=== PATIENT | female | born 2000 | race Caucasian/White ===

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

== ENCOUNTER → 2020-06-10 16:52 | Outpatient (CLI) | payer OTHER, SELFPAY ==
[2019-11-10 09:41] VITALS: BMI 23.2
--- NOTE | 2020-06-10 17:08 | RAD_ITS ---
STUDY: X-RAY - LEFT FOOT CLINICAL: Female, 20 years old. FOOT PAIN TECHNIQUE: 2 view(s) of the foot. COMPARISON: None. FINDINGS: Normal talus, calcaneus, and tarsal bones. Normal visualized subtalar, talonavicular, calcaneocuboid, tarsal and tarsometatarsal articulations. Normal metatarsi. Normal metatarsophalangeal joint of the great toe. Normal tibial and fibular sesamoid bones. Normal interphalangeal joint of the great toe. Normal phalanges of the great toe. Normal second through fifth metatarsophalangeal joints. Normal interphalangeal joints and phalanges of the lesser toes. The soft tissue structures are unremarkable. There is no demonstrated fracture. RAD/Foot 2 Views IMPRESSION: Negative limited 2 view x-ray examination of the foot. Electronically Signed: Alex Ervin MD at 23:55 EDT , Service support ,
--- NOTE | 2020-06-10 17:08 | RAD_ITS ---
STUDY: X-RAY - RIGHT WRIST REASON FOR EXAM: Female, 20 years old. WRIST PAIN TECHNIQUE: 2 view(s) of the wrist were obtained. COMPARISON: None. FINDINGS: Normal visualized distal radius and ulna. Normal radiocarpal articulation. Normal distal radioulnar articulation. Normal carpal bones. Normal carpal articulations. Normal carpometacarpal articulation of the thumb. Normal second through fifth carpometacarpal articulations. Normal visualized metacarpal bones. The soft tissue structures are unremarkable. There is no demonstrated acute fracture. RAD/Wrist 2 Views IMPRESSION: Negative limited 2 view x-ray examination of the wrist. Electronically Signed: Alex Ervin MD at 23:56 EDT , Service support ,
--- NOTE | 2020-06-10 17:09 | RAD_ITS ---
INDICATION: WRIST PAIN EXAMINATION/TECHNIQUE: X-RAY - LEFT XR Wrist 2 Views COMPARISON: None. FINDINGS: No acute fracture or malalignment. No blastic or lytic lesions. No degenerative changes are seen. The soft tissues are unremarkable. RAD/Wrist 2 Views IMPRESSION: No acute radiographic abnormalities. Electronically Signed: Donnie Abrams MD at 23:46 EDT Tel , Service support ,
--- NOTE | 2020-06-10 17:10 | RAD_ITS ---
STUDY: X-RAY - LEFT HAND REASON FOR EXAM: Bilateral hand/wrist pain. TECHNIQUE: 2 view(s) of the hand. COMPARISON: Radiographs of the left wrist obtained the same day. FINDINGS: Normal radiocarpal articulation. Normal distal radioulnar joint. Normal visualized carpal bones. Normal carpal articulations Normal carpometacarpal articulation of the thumb. Normal second through fifth carpometacarpal joints. Normal metacarpi. Normal metacarpophalangeal joint of the thumb. Normal interphalangeal joint of the thumb. Normal proximal and distal phalanges of the thumb. Normal metacarpophalangeal joints of the second through fifth fingers. Normal proximal and distal interphalangeal joints of the second through fifth fingers. Normal phalanges of the second through fifth fingers. The soft tissue structures are unremarkable. RAD/Hand 2 Views IMPRESSION: Normal x-ray examination of the left hand. Electronically Signed: Carter Cabrera MD at 12:55 EDT Tel , Service support ,
--- NOTE | 2020-06-10 17:10 | RAD_ITS ---
STUDY: X-RAY - RIGHT HAND REASON FOR EXAM: Bilateral hand/wrist pain. TECHNIQUE: 2 view(s) of the hand. COMPARISON: Radiographs of the right wrist obtained the same day. FINDINGS: Normal radiocarpal articulation. Normal distal radioulnar joint. Normal visualized carpal bones. Normal carpal articulations Normal carpometacarpal articulation of the thumb. Normal second through fifth carpometacarpal joints. Normal metacarpi. Normal metacarpophalangeal joint of the thumb. Normal interphalangeal joint of the thumb. Normal proximal and distal phalanges of the thumb. Normal metacarpophalangeal joints of the second through fifth fingers. Normal proximal and distal interphalangeal joints of the second through fifth fingers. Normal phalanges of the second through fifth fingers. The soft tissue structures are unremarkable. RAD/Hand 2 Views IMPRESSION: Normal x-ray examination of the right hand. Electronically Signed: Carter Cabrera MD at 12:55 EDT Tel , Service support ,
--- NOTE | 2020-06-10 17:11 | RAD_ITS ---
STUDY: X-RAY CHEST REASON FOR EXAM: Female, 20 years old. TOS RO CERVICAL RIB TECHNIQUE: Frontal and lateral views of the chest. COMPARISON: None. FINDINGS: The lungs are clear and expanded. There is no demonstrated pleural abnormality. Normal size heart. Normal mediastinum and guerita. Normal visualized pulmonary arteries. Normal visualized aortic arch and descending thoracic aorta. Normal visualized thoracic spine. Normal visualized ribs, clavicles, and shoulders. No cervical ribs are seen. There is no demonstrated abnormality of the visualized soft tissue structures of the upper abdomen. RAD/Chest PA and Lateral IMPRESSION: Normal x-ray examination of the chest. Electronically Signed: Alex Ervin MD at 23:54 EDT , Service support ,
--- NOTE | 2020-06-10 17:11 | RAD_ITS ---
INDICATION: NECK PAIN EXAMINATION/TECHNIQUE: X-RAY - XR Spine Cervical 4 or 5 Views COMPARISON: None. FINDINGS: VERTEBRAE: Preserved vertebral body height. No fracture. No spondylolisthesis. Straightening of the normal cervical lordosis. No significant facet arthropathy. DISCS: Disc spaces are maintained. NECK SOFT TISSUES: No prevertebral soft tissue widening. LUNG APICES: Clear. RAD/Cerv Spine 4 or 5 Views IMPRESSION: No acute abnormalities. Electronically Signed: Donnie Abrams MD at 21:41 EDT Tel , Service support ,
--- NOTE | 2020-06-10 17:15 | RAD_ITS ---
STUDY: X-RAY - RIGHT FOOT CLINICAL: Female, 20 years old. FOOT PAIN TECHNIQUE: 2 view(s) of the foot. COMPARISON: None. FINDINGS: Normal talus, calcaneus, and tarsal bones. Normal visualized subtalar, talonavicular, calcaneocuboid, tarsal and tarsometatarsal articulations. Normal metatarsi. Normal metatarsophalangeal joint of the great toe. Normal tibial and fibular sesamoid bones. Normal interphalangeal joint of the great toe. Normal phalanges of the great toe. Normal second through fifth metatarsophalangeal joints. Normal interphalangeal joints and phalanges of the lesser toes. The soft tissue structures are unremarkable. There is no demonstrated fracture. RAD/Foot 2 Views IMPRESSION: Negative limited 2 view x-ray examination of the foot. Electronically Signed: Alex Ervin MD at 23:55 EDT , Service support ,
[2020-06-10 18:09] LABS: Mucous, Urine 0 SEEN /hpf (<or=2+); Red Blood Cells-Urine 0 SEEN /hpf (0-5); White Blood Cells 0 SEEN /hpf (0-5)
[2020-06-10 18:44] LABS: Color, Urine Yellow (Yellow); Glucose, Dipstick Normal (Normal); Ketone-Dipstick Negative (Negative); Leukocyte Esterase-Dipstick Negative /ul (Negative); Nitrite-Dipstick Negative (Negative); Occult Blood-Urine Negative /ul (Negative); Protein-Dipstick 15 mg/dl (Negative); Urine Bilirubin Dipstick Negative (Negative); Urine Clarity Clear (Clear); Urine Urobilinogen Normal (Normal)
[2020-06-10 18:50] LABS: Bacteria RARE /hpf (None Seen); Squamous Epithelial Cells - UA 0-5 SEEN /hpf (5-10)
[2020-06-10 19:39] LABS: Vitamin B12 779 pg/mL (211-911); Vitamin D,25 Hydroxy 30.3 ng/mL
[2020-06-10 19:44] LABS: CPK Total, Creatine Kinase 100 U/L (26-192); Magnesium 2.1 mg/dL (1.6-2.6); Thyroid Stim Hormone (TSH) 3.74 uIU/mL (0.358-3.74); Uric Acid 3.3 mg/dL (2.6-6.0)
[2020-06-12 16:51] LABS: Vitamin D 1,25-Dihydroxy 61.2 pg/mL (19.9-79.3)
== END ==
PROVIDERS: PCP Internal Medicine; Referring Provider Internal Medicine Rheumatology; Visit Provider Internal Medicine Rheumatology
DX: M79.671 Pain in right foot (principal); M79.672 Pain in left foot; M25.531 Pain in right wrist; M25.532 Pain in left wrist; M79.641 Pain in right hand; M79.642 Pain in left hand; M54.2 Cervicalgia; M89.9 Disorder of bone, unspecified; M94.9 Disorder of cartilage, unspecified; G54.0 Brachial plexus disorders; G43.909 Migraine, unspecified, not intractable, without status migrainosus; R53.83 Other fatigue; Z79.1 Long term (current) use of non-steroidal anti-inflammatories (NSAID); Z86.19 Personal history of other infectious and parasitic diseases; Z86.79 Personal history of other diseases of the circulatory system; Z82.61 Family history of arthritis; Z82.69 Family history of other diseases of the musculoskeletal system and connective tissue
CPT/HCPCS: 36415; 71046; 72050; 73100; 73120; 73620; 81001; 81374; 82164; 82306; 82550; 82607; 82652; 82747; 83735; 84207; 84425; 84443; 84550; 85014; 86160; 86256

== ENCOUNTER → 2020-06-20 | Outpatient (CLI) | payer OTHER, SELFPAY ==
[2019-11-10 09:41] VITALS: BMI 23.2
[2020-06-21 16:21] LABS: Folates, RBC Test 1155 ng/mL (>498)
== END | disposition home or self-care (01) ==
LOC: RAD 14:38 → LABSPEC 14:38
PROVIDERS: PCP Internal Medicine; Visit Provider Internal Medicine Rheumatology
DX: G54.0 Brachial plexus disorders (principal); M79.671 Pain in right foot; M79.672 Pain in left foot; Z86.79 Personal history of other diseases of the circulatory system
CPT/HCPCS: 36415; 82747; 85014

== ENCOUNTER 2020-08-01 09:30 | Outpatient (RCR) | payer OTHER, SELFPAY ==
[2019-11-10 09:41] VITALS: BMI 23.2
[2020-06-20 14:11] VITALS: BMI 23.2
--- NOTE | 2020-06-27 11:57 | HP.OTEVAL ---
Patient's Visit Information DORON ANDERSON is a 20 year old F, referred to Occupational Therapy by Dr. Matt Baxter Jr., MD, with a diagnosis of bilateral hand pain, bilateral wrist pain. Date of Evaluation: 06/26/20 Occupational Therapist: Milvia Maya, OTR/L, CHT - Subjective pt states she was dx with arthritis about two yeas ago. 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 eq. that would assist her in limiting her flair ups of wrist and hand pain. - ADLs Kitchen: Chop with knife, Peel fruits & vegetables, Open jars, Open bottle caps, Lift saucepan Comments: increases pain Yard: [place], [place], Use trowel Comments: would like ideas on ad. eq. for gardening Miscellaneous: Write, Use computer keyboard - Pain bilateral wrist 0 Pain Intensity Range: 0, 4 - ROM Wrist: right 75/65 left 75/75 CMC: right 15 left 10 MP: right 48 left 55 IP: right 75 left 75 Radial Abduction: right 40 left 40 Opposition: right 10 left 10 ROM Comments: right IF 85 90. right MF 90 90. right RF 85 RF 90. right LF 85 left 90 - Strength Degreaser Operator: right 80# left 65# Lateral Pinch: right 16# left 14# Tripod Pinch: right 10# left 10# - Edema Wrist: right 16cm left 16cm PIP: right MF 5.8 left MF 6.1 Proximal Phalanx: right 19cm left 19.2cm - Sensation Sensation Comments: denies - Quick DASH-Disab of Arm,Shoulder& Hand Quick DASH Score: 13.3325 - Goals Goal:: pt will demo good thumb positioning ( prevention of MP hyper-ext) with writing, pinching and opening, and grasping objects by d/c. pt will demo understanding of wrist strengthening in limited plan of motion to decrease wrist pop with daily tasks by d/c Goal:: pt will report no pain greater than 1/10 with use of bilateral hands with daily occupations by d.c Goal:: pt will demo understanding of joint protection zoe. use of ad. eq. with ADls and IADL to decrease joint stress with ADLs and IADls by d/c Goal:: pt will demo understanding of using good gardening ergo and tools to limit stress on UE by d/c - Rehabilitation General Assessment: pt demo with bilateral thumb instability, weakness of left and pain in bialteral wrist with some poping sounds. pt limited with ADls due to pain and stiffness- and would benefit from skilled OT services 1x week for 3 weeks to ed. pt on joint protection, ad. eq for kitchen, meals, thumb stabilizatation and gardening ergo. and ad. eq. therapy will ed, pt on isometric ex. for wrist to increase wrist stability and decrease popping. Rehabilitation Potential: Good - Anticipated Interventions A/AAROM/PROM, Joint Protection/Energy Conservation, Ergonomic Education, Fine Motor Coord/Trey, ADL Training, Education re assistive Equipment, Education re Diagnosis, Home Program - Visit Plan Frequency: 1x/Week Duration: 3 Weeks General Plan: initiate strengthening of wrist (isometric and transisiton to wrist flex/ext ex in limited plan of ROM to decrease pop in wrist) TEXT: Thank you for the opportunity to evaluate your patient. For Medicare and Medicare HMO plans, please review the plan of care and approve it. It will need to be FAXED BACK to us at [phone] for Medicare purposes. Please let me know if there are questions or concerns regarding this plan of care. Physician Signature: Date:
== END 2020-08-01 19:00 | disposition home or self-care (01) ==
LOC: OT 09:30
PROVIDERS: PCP Internal Medicine; Referring Provider Internal Medicine Rheumatology; Visit Provider Internal Medicine Rheumatology
DX: M54.2 Cervicalgia (principal); M89.9 Disorder of bone, unspecified; M94.9 Disorder of cartilage, unspecified; M25.531 Pain in right wrist; M25.532 Pain in left wrist; M79.641 Pain in right hand; M79.642 Pain in left hand; R53.83 Other fatigue; G54.0 Brachial plexus disorders; M79.671 Pain in right foot; Z79.1 Long term (current) use of non-steroidal anti-inflammatories (NSAID); Z86.19 Personal history of other infectious and parasitic diseases; Z86.79 Personal history of other diseases of the circulatory system; Z82.69 Family history of other diseases of the musculoskeletal system and connective tissue; Z82.61 Family history of arthritis
CPT/HCPCS: 97110; 97166; 97530

== ENCOUNTER 2020-08-21 12:30 | Outpatient (RCR) | payer OTHER, SELFPAY ==
[2019-11-10 09:41] VITALS: BMI 23.2
[2020-06-20 14:11] VITALS: BMI 23.2
--- NOTE | 2020-06-26 12:23 | HP.PTEVAL ---
Patient's Visit Information DORON ANDERSON is a 20 year old F referred to Physical Therapy by Dr. Matt Baxter Jr., MD with a diagnosis of CERVICALGIA. Date of Evaluation: 06/26/20 Physical Therapist: Joan Rodriguez PT, Cert MDT - Visit Plan Frequency: 2-3x /Week Duration: 4-6 Weeks Plan: *LATEX ALLERGY. NO SQUATS. PATIENT IS ALSO SEEING OT AT THIS TIME FOR WRIST AND HAND PAIN. POSTURE CORRECTION/STRENGTHENING, INSTRUCTION IN APPROPRIATE BODY MECHANICS AND ACTIVITY MODIFICATIONS. JAYLEN UE ROM, STRETCHING AND STRENGTHENING. HEP INSTRUCTION. 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 [employer]. GARDENING. Disability: NO. Present symptoms: ALWAYS TIGHT IN NECK AND UPPER BACK. UPPER BACK PAIN, NECK PAIN. WRISTS AND HANDS - SEEING OT FOR WRIST AND HAND ARTHRITIS PAIN THOUGH. SOMETIMES JAYLEN UE'S GO TO SLEEP AT NIGHT. GOES AWAY AFTER A FEW MINUTES UPON WAKENING. OCCURS ABOUT ONCE EVERY TWO WEEKS. A LOT OF HEADACHES THAT SOMETIMES TURN INTO MIGRAINES. Present since: CHRONIC (YEARS). Pain Scale: Worst - 5/10 Least - 0/10. Currently: 03/31. Commenced as a result of: POSSIBLY FROM CONCUSSIONS SUSTAINED FROM A FALL OFF A HORSE AND TRIPPING ON A SIDEWALK. Symptoms at onset: NECK AND UPPER BACK STIFFNESS AND TIGHTNESS DURING A VERY STRESSFUL POINT IN LIFE. Worse: STRESS, SLEEPING POSTURE, INCREASED PAIN AND STIFFNESS IN THE MORNINGS, SCHOOL, HEAVY BACKPACK, SITTING POSTURE, COMPUTER WORK. Better: CHANGE OF ACTIVITY OR POSITION. MALOXACAM. IBUPROFEN. Disturbed sleep: YES. Previous history/Previous treatment: CHIROPRACTOR STARTING LAST YEAR WHICH GIVES SHORT TERM RELIEF. HAS HAD ABOUT 5 OR 6 VISITS - ABOUT ONCE EVERY 2 MONTHS. Dizziness: NO. Tinnitis: NO. Nausea: NO. Shortness of Breath: NO. Difficulty Swollowing: NO. Gait: NORMAL. Accidents: 2 CONCUSSIONS - SEE ABOVE. Unexplained weight loss: NO. Imaging: RECENT NORMAL NECK X-RAY. PMH/Recent major surgery: DISORDER OF BONE AND CARTILAGE, B WRIST AND HAND PAIN, FATIGUE, FPC USE OF NSAIDS, H/O LYME DISEASE, FAMILY H/O ANKYLOSING SPONDYLITIS, LUPUS AND RA. TOS. JAYLEN FOOT PAIN. MIGRAINES. OTHER: NEUROLOGIST BRIJESH'T PENDING IN JULY FOR MIGRAINES. - Objective Sitting Posture/Standing Posture: POOR. FH. RS'S. Active Correction of posture: BETTER. Other Observations: INDEP GAIT AND TRANSFERS. Motor deficit: JAYLEN UE'S GROSSLY 5/5 WITH MMT'ING EXCEPT SHLD'S GRADED 4/5 AND HANDS NOT NESTED. Sensory deficit: JAYLEN UE LIGHT TOUCH SENSATION INTACT AND SYMMETRICAL - HANDS NT. ROM deficit: JAYLEN SHLDS AND ELBOWS WNL. Reflexes: JAYLEN UE'S 2/3. Dural Signs: NEGATIVE JAYLEN UE'S. Cervical Mvmt Loss: Flex: NIL. Pro: NIL. Ext: NIL. Ret: MOD. RSB: MIN. LSB: MIN. R Rot: NIL. L Rot: NIL. THORACIC MVMT LOSS: JAYLEN ROTATION - MIN. PATIENT REPORTS TIGHTNESS BUT NOT PAIN WITH CERVICAL AND THORACIC ROM TESTING. Postural strength: POOR. Palpation: NO ACUTE THORACIC OR CERVICAL TENDERNESS. VERY TIGHT JAYLEN UPPER TRAPS WITH MULTIPLE TRIGGER POINTS. TREATMENT: NEUROMUSCULAR REEDUCATION - RETRAINING OF MVMT AND POSTURE FOR SITTING AND STANDING ACTIVITIES. INTRO TO POSTURAL EDUCATION AND CORRECTION. - Goals Goal 1:: DECREASE C/O NECK, UPPER BACK AND JAYLEN UE SX'S. Goal Time Frame: 4-6 Weeks Goal 2:: IMPROVE READING, SLEEP AND WORK FUNCTION Goal Time Frame: 4-6 Weeks Goal 3:: INSTRUCT IN PROPHYLAXIS Goal Time Frame: 4-6 Weeks - Anticipated Interventions Patient/Client Instruction: Educate patient on: Condition, Plan of Care, Risk Factors For the Purpose of:: To improve self management Therapeutic Exercise to Include: Strength training, Body mechanics, Postural training, Flexibilty training, Neuromotor development, In an aquatic setting, Scapular Strength/Stabilization Comment: CONSIDER AQUATIC THERAPY BASED ON RESPONSE TO LAND EX. DISCUSSED WITH PATIENT . For the Purpose of:: To decrease pain, To increase ROM, To improve muscle performance and motor function, To increase tolerance to activity/condition/position, To improve ability of physical actions for home/community/work/leisure Thank you for the opportunity to evaluate your patient. For Medicare and Medicare HMO plans, please review the plan of care and approve it. It will need to be FAXED BACK to us at [phone] for Medicare purposes. For Medicare only, by signing this I certify the plan of care. Please let me know if there are questions or concerns regarding this plan of care. Physician Signature: Date:
--- NOTE | 2020-08-21 13:21 | HP.PTDCSUM ---
It has been my pleasure to treat DORON ANDERSON referred by Dr. Matt Baxter Jr., MD, with the diagnosis of CERVICALGIA for a total of 10 visit(s). Discharge Date: 08/21/20 Please see the following information for a summary of their discharge status. Subjective: MY HEADACHES HAVE SIGNIFICANTLY IMPROVED. I FEEL CONFIDENT IN THE EX'S. PATIENT REPORTS SHE IS HAVING GENERALIZED PAIN TODAY THAT SHE RELATES TO THE WEATHER. NECK Pain Intensity (Out of 10): 1 SHOULDERS Pain Intensity (Out of 10): 1 UE'S Pain Intensity (Out of 10): 1 % Improvement: 75 Objective/Function: PATIENT WAS SEEN TODAY FOR RE-ASSESSMENT OF PROGRESS TOWARD THE SET PT GOALS AND THE NEED FOR FURTHER PHYSICAL THERAPY VS READINESS FOR DISCHARGE. ALL PT GOALS HAVE BEEN MET AND PATIENT IS APPROPRIATE FOR AND AGREEABLE TO D/C. UPON EXAM TODAY: Sitting Posture/Standing Posture: FAIR. MILD FH AND RS'S. Other Observations: INDEP GAIT AND TRANSFERS. Motor deficit: JAYLEN UE'S GROSSLY 5/5. ROM deficit: JAYLEN SHLDS AND ELBOWS WNL. Dural Signs: NEGATIVE JAYLEN UE'S. Cervical Mvmt Loss: Flex: NIL. Pro: NIL. Ext: NIL. Ret: MIN. RSB: NIL. LSB: NIL. R Rot: NIL. L Rot: NIL. THORACIC MVMT LOSS: JAYLEN ROTATION - NIL. PATIENT DENIES PAIN WITH CERVICAL AND THORACIC ROM TESTING. Postural strength: FAIR. ANSWERED PATIENTS QUESTIONS ABOUT HEP AND PATIENT COMMUNICATED A GOOD UNDERSTANDING OF ALL INSTRUCTIONS GIVEN. Goal 1:: DECREASE C/O NECK, UPPER BACK AND JAYLEN UE SX'S. Goal Progress: Goal Met Goal 2:: IMPROVE READING, SLEEP AND WORK FUNCTION Goal Progress: Goal Met Goal 3:: INSTRUCT IN PROPHYLAXIS Goal Progress: Goal Met Plan: D/C TO HEP. If there are questions or concerns regarding this patient's physical therapy, please feel free to call me at [phone]. Thank you for the referral of this patient. Sincerely, Joan Rodriguez, PT, Cert MDT
== END 2020-08-21 19:00 | disposition home or self-care (01) ==
LOC: PT 12:30
PROVIDERS: PCP Internal Medicine; Referring Provider Internal Medicine Rheumatology; Visit Provider Internal Medicine Rheumatology
DX: M54.2 Cervicalgia (principal); M89.9 Disorder of bone, unspecified; M94.9 Disorder of cartilage, unspecified; M25.531 Pain in right wrist; M25.532 Pain in left wrist; M79.641 Pain in right hand; M79.642 Pain in left hand; R53.83 Other fatigue; G54.0 Brachial plexus disorders; M79.671 Pain in right foot; Z79.1 Long term (current) use of non-steroidal anti-inflammatories (NSAID); Z86.19 Personal history of other infectious and parasitic diseases; Z86.79 Personal history of other diseases of the circulatory system; Z82.61 Family history of arthritis; Z82.69 Family history of other diseases of the musculoskeletal system and connective tissue
CPT/HCPCS: 97014; 97035; 97110; 97112; 97162; 97164; 97530; G0283

== ENCOUNTER → 2020-12-19 14:44 | Outpatient (CLI) | payer OTHER, SELFPAY | PROVIDERS: PCP Internal Medicine; Referring Provider Physician Assistant; Visit Provider Physician Assistant | DX: Z11.52 Encounter for screening for COVID-19 (principal) | CPT/HCPCS: 87635; U0005; U0003 ==

== ENCOUNTER 2021-06-16 14:17 | Outpatient (CLI) | payer OTHER, SELFPAY ==
[2021-06-16 15:16] LABS: Absolute Lymphocyte Count 2.28 X10^3/uL (0.83-4.51); Basophil# 0.04 X10^3/uL; Basophil% 0.6 % (0-1); Eosinophil# 0.07 X10^3/uL; Hematocrit 39.9 % (37-47); Hemoglobin 13.4 g/dL (12.0-15.0); Lymphocyte # 2.28 X10^3/ul (0.83-4.51); Lymphocyte % 32.5 % (19-41); Mean Corp Hgb Conc 33.6 g/dL (32-36); Mean Corpuscular Hgb 30.7 pg (27.0-32.0); Mean Corpuscular Volume 91.5 fL (81-99); Mean Platelet Vol. 10.5 fl (6.2-12.0); Monocyte# 0.58 X10^3/uL; Monocyte% 8.3 % (0-10); NRBC Flagged by Analyzer 0 % (0-5); Neutrophil # 4.01 X10^3/uL (2.7-7.7); Neutrophil % 57.2 % (47-70); Platelet Count 359 K/mm3 (150-450); RBC Distribution Width CV 12.4 % (11.6-14.6); RBC Distribution Width SD 41.1 fl (35.1-43.9); Red Blood Count 4.36 M/mm3 (4.2-5.4)
[2021-06-16 15:37] LABS: Vitamin B12 708 pg/mL (211-911)
[2021-06-16 15:57] LABS: ALB/GLOB Ratio 1.1 RATIO (0.9-2.4); AST(SGOT) 22 U/L (15-37); Alanine Aminotransfer ALT/SGPT 46 U/L (13-56); Albumin, Serum 4.2 g/dL (3.2-5.0); Alkaline Phosphatase 80 U/L (45-117); Anion Gap 6 (5-15); BUN 9 mg/dL (7-18); BUN/Creat Ratio 13.4 RATIO (10-20); Calcium,Total 8.9 mg/dL (8.5-10.1); Chloride 103 mmol/L (98-107); Creatinine, Serum 0.67 mg/dL (0.55-1.02); EST Glomerular Filtration Rate 117 mL/min (>60); Est Glom Filt Rate - Afr Amer 142 mL/min (>60); Globulin 3.8 g/dL (2.2-4.2); Glucose 94 mg/dL (74-106); Potassium 4.1 mmol/L (3.5-5.1); Sodium Level 138 mmol/L (136-145); Thyroid Stim Hormone (TSH) 2.95 uIU/mL (0.358-3.74)
== END 2021-06-16 23:59 | disposition home or self-care (01) ==
LOC: BIMLAB 14:19
PROVIDERS: PCP Internal Medicine; Referring Provider Physician Assistant; Visit Provider Physician Assistant
DX: R00.2 Palpitations (principal); I95.9 Hypotension, unspecified; E53.8 Deficiency of other specified B group vitamins; E55.9 Vitamin D deficiency, unspecified
CPT/HCPCS: 36415; 80053; 82306; 82607; 84443; 85025

== ENCOUNTER 2021-07-08 09:07 | Outpatient (CLI) | payer OTHER, SELFPAY | END 2021-07-08 23:59 | disposition home or self-care (01) | LOC: PSN 09:10 | PROVIDERS: PCP Internal Medicine; Referring Provider Physician Assistant; Visit Provider Physician Assistant | DX: R00.2 Palpitations (principal) | CPT/HCPCS: 93225; 93226 ==

== ENCOUNTER → 2021-11-06 | Outpatient (CLI) | payer OTHER, SELFPAY ==
[2021-11-13 09:28] LABS: HPV Reflexed? NOT INDICATED
== END | disposition home or self-care (01) ==
LOC: LABSPEC 12:50
PROVIDERS: PCP Internal Medicine; Visit Provider Obstetrics & Gynecology
DX: Z12.4 Encounter for screening for malignant neoplasm of cervix (principal)
CPT/HCPCS: 88175; G0145

== ENCOUNTER → 2023-07-12 | Outpatient (CLI) | payer OTHER, SELFPAY ==
[2023-07-12 15:37] LABS: Erythrocyte Sedimentation Rate 5 mm/hr (0-30)
[2023-07-12 15:40] LABS: Absolute Lymphocyte Count 2.11 X10^3/uL (0.83-4.51); Absolute Neutrophil Count 3.5 X10^3/uL (2.0-7.7); Basophil# 0.04 X10^3/uL; Basophil% 0.7 % (0-1); Eosinophil# 0.07 X10^3/uL; Eosinophils% 1.1 % (0-5); Hematocrit 37.9 % (37-47); Hemoglobin 12.4 g/dL (12.0-15.0); Lymphocyte # 2.11 X10^3/ul (0.83-4.51); Lymphocyte % 34.3 % (19-41); Mean Corp Hgb Conc 32.7 g/dL (32-36); Mean Corpuscular Hgb 28.6 pg (27.0-32.0); Mean Corpuscular Volume 87.3 fL (81-99); Monocyte# 0.39 X10^3/uL; Monocyte% 6.3 % (0-10); NRBC Flagged by Analyzer 0 % (0-5); Neutrophil # 3.53 X10^3/uL (2.7-7.7); Neutrophil % 57.4 % (47-70); Platelet Count 365 K/mm3 (150-450); RBC Distribution Width SD 38.9 fl (35.1-43.9); Red Blood Count 4.34 M/mm3 (4.2-5.4); White Blood Count 6.2 K/mm3 (4.4-11.0)
[2023-07-12 16:30] LABS: ALB/GLOB Ratio 0.8 RATIO (0.9-2.4); AST(SGOT) 15 U/L (15-37); Alanine Aminotransfer ALT/SGPT 17 U/L (13-56); Albumin, Serum 3.4 g/dL (3.2-5.0); Alkaline Phosphatase 60 U/L (45-117); Anion Gap 6 (5-15); BUN 5 mg/dL (7-18); BUN/Creat Ratio 7.1 RATIO (10-20); CRP 6.05 mg/L (0.0-3.0); Calcium,Total 8.6 mg/dL (8.5-10.1); Chloride 107 mmol/L (98-107); Creatinine, Serum 0.71 mg/dL (0.55-1.02); EST Glomerular Filtration Rate 109 mL/min (>60); Est Glom Filt Rate - Afr Amer 132 mL/min (>60); Globulin 4.1 g/dL (2.2-4.2); Glucose 106 mg/dL (74-106); Potassium 3.7 mmol/L (3.5-5.1); Protein, Total 7.5 g/dL (6.4-8.2); Rheumatoid Factor < 10.0 IU/mL (<15); Sodium Level 140 mmol/L (136-145); T4 Free Direct 1.06 ng/dL (0.76-1.46); Thyroid Stim Hormone (TSH) 4.16 uIU/mL (0.358-3.74)
[2023-07-13 12:46] LABS: Vitamin D,25 Hydroxy 39.9 ng/mL
[2023-07-14 11:09] LABS: ANTINUCLEAR ANTIBODIES DIRECT Negative (Negative)
[2023-07-16 13:08] LABS: CCP IgG Antibodies 6 units (0-19)
== END | disposition home or self-care (01) ==
LOC: BIMLAB 14:16
PROVIDERS: PCP Internal Medicine; Visit Provider Internal Medicine
DX: K59.09 Other constipation (principal); M13.0 Polyarthritis, unspecified; E55.9 Vitamin D deficiency, unspecified
CPT/HCPCS: 36415; 80053; 82306; 84439; 84443; 85025; 85652; 86038; 86140; 86200; 86225; 86235; 86431

== ENCOUNTER → 2023-08-30 | Outpatient (CLI) | payer OTHER, SELFPAY ==
[2023-08-30 15:06] LABS: T4 Free Direct 1.09 ng/dL (0.76-1.46); Thyroid Stim Hormone (TSH) 2.98 uIU/mL (0.358-3.74)
== END | disposition home or self-care (01) ==
LOC: LAB 13:37
PROVIDERS: PCP Internal Medicine; Visit Provider Internal Medicine
DX: R79.89 Other specified abnormal findings of blood chemistry (principal)
CPT/HCPCS: 36415; 84439; 84443

== ENCOUNTER → 2024-12-04 | Outpatient (CLI) | payer OTHER, SELFPAY ==
[2024-12-04 16:55] LABS: Hematocrit 37.8 % (37-47); Hemoglobin 12.6 g/dL (12.0-15.0); Immature Granulocytes Count 0.000 X10^3/uL (0.0-0.0); Mean Corp Hgb Conc 33.3 g/dL (32-36); Mean Corpuscular Volume 87.7 fL (81-99); Mean Platelet Vol. 10.2 fl (6.2-12.0); NRBC Flagged by Analyzer 0 % (0-5); Platelet Count 417 K/mm3 (150-450); RBC Distribution Width CV 12.2 % (11.6-14.6); RBC Distribution Width SD 38.4 fl (35.1-43.9); Red Blood Count 4.31 M/mm3 (4.2-5.4); White Blood Count 5.2 K/mm3 (4.4-11.0)
== END | disposition home or self-care (01) ==
LOC: BWCLAB 14:30
PROVIDERS: Referring Provider Obstetrics & Gynecology; Visit Provider Obstetrics & Gynecology
DX: Z12.4 Encounter for screening for malignant neoplasm of cervix (principal); Z13.0 Encounter for screening for diseases of the blood and blood-forming organs and certain disorders involving the immune mechanism; Z13.29 Encounter for screening for other suspected endocrine disorder; Z13.228 Encounter for screening for other metabolic disorders
CPT/HCPCS: 36415; 84439; 84443; 85025; 86762; 88175; G0145